=== PATIENT | female | born 1970 | race American Indian/Alaskan Native ===

== ENCOUNTER 2017-05-23 08:12 | Outpatient (CLI) | payer MEDICAID ==
--- NOTE | 2017-05-23 09:18 | Mammography Report ---
Screening augmented bilateral mammogram: Routine views with displacement images are compared to her prior pre-augmented routine examination in April 2014. There are intact bilateral submuscular saline implants. The surrounding fibroglandular tissue is heterogeneous. In the superior right breast on the augmented image is a focal nodule which I cannot clearly identify on the displacement images nor on the prior examination. The remainder of the breast pattern bilaterally is unremarkable and essentially unchanged. CAD used. Impression: Right breast asymmetry. This may represent a lymph node. Recommendation: Right breast ultrasound. If there is no definable mass in the superior breast other than a lymph node no additional evaluation is deemed necessary. BI-RADS CATEGORY: 0 = Needs additional imaging evaluation ACR BI-RADS MAMMOGRAPHIC CODES: 0 = Needs additional imaging evaluation; 1 = Negative; 2 = Benign; 3 = Probably benign; 4 = Suspicious; 5 = Malignant; 6 = Known biopsy-proven malignancy COMMENT: 1. Dense breast tissue, i.e., adenosis, fibrocystic changes, etc., may obscure an underlying neoplasm. 2. Approximately 10% of cancers are not detected with mammography. 3. A negative mammography report should not delay biopsy if a clinically suspicious mass is present.
== END 2017-05-23 08:13 | disposition home or self-care (01) ==
LOC: SPVWC 08:12
PROVIDERS: ATTEND Internal Medicine
DX: Z12.31 Encounter for screening mammogram for malignant neoplasm of breast (principal); Z98.82 Breast implant status
CPT/HCPCS: 77067; G0202

== ENCOUNTER 2017-10-31 08:24 | Outpatient (CLI) | payer MEDICAID ==
--- NOTE | 2017-10-31 09:57 | Mammography Report ---
Right mammogram and right breast ultrasound: Recall patient for asymmetry identified on right breast images in May 2017. Initially ultrasound was performed in the area of concern and no findings are noted in the superior breast. A repeat mammogram with spot compression in this area also confirmed the lack of a significant finding. Couple small lymph nodes noted in the right axilla. Impressions: No significant findings. Recommendation: Annual mammogram followup. BI-RADS CATEGORY: 1 = Negative ACR BI-RADS MAMMOGRAPHIC CODES: 0 = Needs additional imaging evaluation; 1 = Negative; 2 = Benign; 3 = Probably benign; 4 = Suspicious; 5 = Malignant; 6 = Known biopsy-proven malignancy COMMENT: 1. Dense breast tissue, i.e., adenosis, fibrocystic changes, etc., may obscure an underlying neoplasm. 2. Approximately 10% of cancers are not detected with mammography. 3. A negative mammography report should not delay biopsy if a clinically suspicious mass is present.
== END 2017-10-31 08:25 | disposition home or self-care (01) ==
LOC: SPVWC 08:24
PROVIDERS: ATTEND Specialist
DX: N63.10 Unspecified lump in the right breast, unspecified quadrant (principal); N64.89 Other specified disorders of breast